=== PATIENT | male | born 1960 | race Caucasian/White ===

== ENCOUNTER 2018-06-13 08:25 | Observation (INO) ==
[2018-06-13] MEDS ORDERED: SODIUM CHLORIDE 0.9% 1,000 ML IV STA (08:39)
[2018-06-13 08:51] LABS: Basophils # 0.1 10*3/uL (0.0-0.2); Basophils % 0.8 % (0.0-0.8); Eosinophils # 0.4 10*3/uL (0.0-0.87); Eosinophils % 2.5 % (0.00-10.9); Hematocrit 39.9 VOL% (42.0-52.0); Hemoglobin 14.1 GM/DL (14.0-18.0); Immature Granulocytes % 0.4 %; Immature Granulocytes Absolute 0.06 #; Lymphocytes # 5.2 10*3/uL (1.4-4.0); Lymphocytes % 33.9 % (21.2-54.2); Mean Corpuscular HGB Conc 35.3 GM/DL (32-36); Mean Corpuscular Hemoglobin 31 PG (27-34); Mean Corpuscular Volume 88.1 FL (87-102); Monocytes # 1.6 10*3/uL (0.11-0.8); Monocytes % 10.4 % (1.7-12.7); Platelet Count 257 T/CUMM (130-400); Red Blood Count 4.53 MC/CUMM (3.8-5.5); Red Cell Distribution Width 13.9 % (9.3-17.3); White Blood Count 15.4 T/CUMM (4-12)
[2018-06-13 09:00] LABS: PT Patient Result 10.3 SECS; Partial Thromboplastin Time 23.7 SECS (0-40)
[2018-06-13] MEDS ORDERED: ceFAZolin 1,000 MG VIAL ONE (09:05)
[2018-06-13 09:18] LABS: Bilirubin,Total 0.4 MG/DL (0.2-1.0); Calcium 9.5 MG/DL (8.5-10.1); Osmolality,Calculated 282.3 MOS/KG (273-304); Potassium 2.9 MMOL/L (3.5-5.1); Total Protein 7.6 G/DL (6.4-8.3)
[2018-06-13] MEDS ORDERED: POTASSIUM CHLORIDE 20 MEQ TABLET PO STA (09:35)
[2018-06-13] MEDS ORDERED: SODIUM CHLOR 0.9% KCL 40 MEQ 40 MEQ/1,000 ML BAG IV SCH (11:30)
[2018-06-13] MEDS ORDERED: ACETAMINOPHEN 325 MG TABLET PO PRN (12:08)
[2018-06-13] MEDS ORDERED: ONDANSETRON 4 MG/2 ML VIAL IV PRN (12:08)
[2018-06-13] MEDS ORDERED: MORPHINE 4 MG/1 ML VIAL IV PRN (12:08)
[2018-06-13] MEDS: POTASSIUM CHLORIDE INJ 20 MEQ in LACTATED RINGERS 1,000 ML IV SCH ×3 (12:41→23:24)
[2018-06-13] MEDS ORDERED: LIDOCAINE 1% 20 ML VIAL ONE (12:58)
[2018-06-13] MEDS ORDERED: HEPARIN 5,000 UNIT/1 ML VIAL ONE (13:32)
[2018-06-13] MEDS ORDERED: SEVOFLURANE 1 UNIT/15 MINUTE INH ONE (14:27)
[2018-06-13] MEDS ORDERED: MIDAZOLAM 2 MG/2 ML VIAL ONE ×2 (14:27→14:28)
[2018-06-13] MEDS ORDERED: fentaNYL 100 MCG/2 ML VIAL ONE (14:27)
[2018-06-13] MEDS ORDERED: PROPOFOL 200 MG/20 ML VIAL IV ONE (14:27)
[2018-06-14 08:39] LABS: Calcium 8.4 MG/DL (8.5-10.1); Osmolality,Calculated 279.3 MOS/KG (273-304); Potassium 4.3 MMOL/L (3.5-5.1)
[2018-06-14] MEDS ORDERED: PANTOPRAZOLE 40 MG TABLET PO SCH (09:00)
[2018-06-14] MEDS: POTASSIUM CHLORIDE INJ 20 MEQ in LACTATED RINGERS 1,000 ML IV SCH (09:58)
[2018-06-14 13:05] VITALS: BP 108/64
[2018-06-14] MEDS ORDERED: ceFAZolin 1,000 MG in SYRINGE 1 EACH IV SCH (15:00)
== END 2018-06-14 13:30 ==
LOC: N.ED 08:25 → N.EDINP 08:25 → N.2W 11:36 → N.5E 12:49
PROVIDERS: ADMIT Surgery; ATTEND Surgery